=== PATIENT | male | born 1990 ===

== ENCOUNTER 2019-03-13 00:18 | Emergency (ER) | payer SELFPAY ==
[2019-03-13 00:47] LABS: Basophils % (Auto) 0.6 % (0.0-1.8); Eosinophils # (Auto) 0.1 K/mm3 (0.0-0.4); Eosinophils % (Auto) 1.4 % (0.0-4.3); Hemoglobin 16.9 gm/dl (11.8-15.2); Lymphocytes # (Auto) 2.8 K/mm3 (1.2-5.4); Lymphocytes % (Auto) 31.2 % (13.4-35.0); Mean Corpuscular HGB Conc 35 % (32-34); Mean Corpuscular Volume 86 fl (84-94); Monocytes # (Auto) 0.8 K/mm3 (0.0-0.8); Platelet Count 277 K/mm3 (140-440); Red Blood Count 5.58 M/mm3 (3.65-5.03)
[2019-03-13 01:06] LABS: Alanine Aminotransferase 94 units/L (7-56); Albumin 4.8 g/dL (3.9-5); BUN/Creatinine Ratio 11; Blood Urea Nitrogen 9 mg/dL (9-20); Calcium 9.6 mg/dL (8.4-10.2); Hemolysis Index 15
[2019-03-13 02:17] LABS: Bacteria,Urine 1+ /HPF (Negative); Bilirubin,Urine NEG (Negative); Blood,Urine NEG (Negative); Color,Urine Yellow (Yellow); Mucus,Urine 1+ /HPF; Protein,Urine <15 mg/dL mg/dL (Negative); Urobilinogen,Urine < 2.0 mg/dL (<2.0)
[2019-03-13] MEDS ORDERED: PEPCID PO ONE (03:08)
[2019-03-13] MEDS ORDERED: ALUM-MAG HYDROX-SIMETH 200-200-20MG/5ML PO ONE (03:08)
[2019-03-13] MEDS ORDERED: LIDOCAINE VISCOUS 2% PO ONE (03:08)
--- NOTE | 2019-03-13 04:16 | Ultrasound Report ---
ULTRASOUND ABDOMEN, LIMITED (RIGHT UPPER QUADRANT) INDICATION: RUQ Pain COMPARISON: None available. LIMITATIONS: None FINDINGS: Pancreas: Visualized portion shows no significant abnormality. Liver: Prominent diffuse fatty infiltration is seen without obvious focal mass. Liver is not signific antly enlarged. Hepatic length is 14.8 cm. Gallbladder: Normal. Bile ducts: Normal. Common Bile Duct measures 4 mm. Right Kidney: Visualized portions show no abnormality. Free fluid: None. Additional Findings: None. IMPRESSION: No acute abnormalities are seen. Prominent fatty infiltration of the liver. Signer Name: Quintin Trujillo MD Signed: 03/13/2019 4:11 AM Workstation Name: [id number]
[2019-03-13] MEDS ORDERED: MORPHINE IM ONE (04:18)
[2019-03-13] MEDS ORDERED: ZOFRAN ODT PO ONE (04:18)
--- NOTE | 2019-03-13 05:41 | Emergency Department Report ---
ED Abdominal Pain HPI - General Chief Complaint: Abdominal Pain Stated Complaint: ABDOMINAL PAIN Source: patient Mode of arrival: Ambulatory Limitations: No Limitations - History of Present Illness Initial Comments: Patient is a 28-year-old morbidly obese male with no past medical history presents to the ED with continued of acute onset persistent epigastric pain that radiates to the right upper quadrant area with nausea and vomiting for the last 2 days, worse in the last 8 hours after eating at [employer] over 8 hours ago. Patient denies diarrhea, fever, chills, dizziness, chest pain, shortness of breath, sore throat, headache, dizziness, dysuria, urinary freque ncy and urgency, diarrhea, constipation, back pain or hematuria and hematemesis. MD Complaint: abdominal pain, other (Nausea and vomiting) -: Sudden, days(s) (2) Location: RUQ, epigastric Radiation: RUQ, epigastric Migration to: no migration Severity: moderate Severity scale (0 -10): 6 Quality: cramping, aching, sharp Consistency: intermittent Improves With: nothing Worsens With: nothing Context: possible food poisoning Associated Symptoms: denies other symptoms, nausea, vomiting. denies: diarrhea, fever, chills, constipation, dysuria, hematemesis, hematochezia, melena, anorexia, syncope - Related Data Previous Rx's Medication Instructions Recorded Last Taken Type Dicyclomine [Bentyl] 20 mg PO Q6H PRN #24 tablet 03/13/19 Unknown Rx Ondansetron [Zofran ODT TAB] 8 mg PO Q8HR PRN #21 tab.rapdis 03/13/19 Unknown Rx raNITIdine HCl [Zantac] 150 mg PO Q12H #30 tablet 03/13/19 Unknown Rx traMADol [Ultram] 50 mg PO Q6HR PRN #12 tablet 03/13/19 Unknown Rx Allergies Allergy/AdvReac Type Severity Reaction Status Date / Time No Known Allergies Allergy Unverified 03/13/19 00:28 ED Review of Systems ROS: Stated complaint: ABDOMINAL PAIN Other details as noted in HPI Constitutional: denies: chills, fever Eyes: denies: eye pain, eye discharge, vision change ENT: denies: ear pain, throat pain Respiratory: denies: cough, shortness of breath, wheezing Cardiovascular: denies: chest pain, palpitations Endocrine: no symptoms reported Gastrointestinal: abdominal pain, nausea, vomiting. denies: diarrhea, constipation, hematemesis Genitourinary: denies: urgency, dysuria Musculoskeletal: denies: back pain, joint swelling, arthralgia Skin: denies: rash, lesions Neurological: denies: headache, weakness, paresthesias Psychiatric: denies: anxiety, depression Hematological/Lymphatic: denies: easy bleeding, easy bruising ED Past Medical Hx - Past Medical History Previous Medical History?: No - Surgical History Past Surgical History?: No - Social History Smoking Status: Current Some Day Smoker Substance Use Type: None - Medications Home Medications: Home Medications Medication Instructions Recorded Confirmed Last Taken Type Dicyclomine [Bentyl] 20 mg PO Q6H PRN #24 tablet 03/13/19 Unknown Rx Ondansetron [Zofran ODT TAB] 8 mg PO Q8HR PRN #21 tab.rapdis 03/13/19 Unknown Rx raNITIdine HCl [Zantac] 150 mg PO Q12H #30 tablet 03/13/19 Unknown Rx traMADol [Ultram] 50 mg PO Q6HR PRN #12 tablet 03/13/19 Unknown Rx ED Physical Exam - General Limitations: No Limitations General appearance: alert, in no apparent distress - Head Head exam: Present: atraumatic, normocephalic, normal inspection - Eye Eye exam: Present: normal appearance, PERRL, EOMI Pupils: Present: normal accommodation - ENT ENT exam: Present: normal exam, normal orophraynx, mucous membranes moist, TM's normal bilaterally, normal external ear exam - Neck Neck exam: Present: normal inspection, full ROM. Absent: tenderness - Respiratory Respiratory exam: Present: normal lung sounds bilaterally. Absent: respiratory distress, wheezes, rales, rhonchi, chest wall tenderness, accessory muscle use - Cardiovascular Cardiovascular Exam: Present: regular rate, normal rhythm, normal heart sounds. Absent: systolic murmur, diastolic murmur, rubs, gallop - GI/Abdominal GI/Abdominal exam: Present: soft, tenderness (epigastric, RUQ ), normal bowel sounds. Absent: guarding, rebound, hyperactive bowel sounds, organomegaly - Rectal Rectal exam: Present: deferred - Extremities Exam Extremities exam: Present: normal inspection, full ROM, normal capillary refill - Back Exam Back exam: Present: normal inspection, full ROM. Absent: tenderness, CVA tenderness (R), CVA tenderness (L), muscle spasm, paraspinal tenderness - Neurological Exam Neurological exam: Present: alert, oriented X3, CN II-XII intact, normal gait, reflexes normal - Psychiatric Psychiatric exam: Present: normal affect, normal mood - Skin Skin exam: Present: warm, dry, intact, normal color. Absent: rash ED Course Vital Signs 03/13/19 00:23 Temperature 97.3 F L Pulse Rate 85 Blood Pressure 149/87 O2 Sat by Pulse 95 Oximetry - Reevaluation(s) Reevaluation #1: 03/13/19 05:47 This is a 28-year-old male who is morbidly obese who presents to the ED with epigastric and right upper quadrant pain, nausea and vomiting for 2 days worse in the last 12 hours. In the ED, patient is alert and oriented 3 and is not in any distress, and not actively having vomiting. Lab test results were reviewed and nonactionable except for elevated AST of 61 and ALT of 94. Urinalysis is unremarkable. Gallbladder ultrasound shows no gallstones, no pericholecystic fluid or gallbladder wall thickening. Gallbladder ultrasound is generally unremarkable. Patient was treated for nausea and vomiting and for p ain and on reevaluation, patient's pain is resolved and patient has not had any nausea or vomiting while in the ED. Patient was discharged home on medications and advised to follow-up with his primary care physician in 7-10 days for reevaluation. Patient was also advised to maintain a clear liquid diet for 12- 24 hours and to return to the ED immediately if symptoms get worse. 03/13/19 05:48 ED Medical Decision Making - Lab Data Result diagrams: 03/13/19 00:31 03/13/19 00:31 - Radiology Data Radiology results: report reviewed, image reviewed Findings [facility] [address] [place] [address] Ultrasound Report Signed Patient: GABRIEL BURNS MR#: [id number] : 1990 Acct:[id number] Age/Sex: 28 / M ADM Date: 03/13/19 Loc: ED Attending Dr: Ordering Physician: CAMELIA TRUJILLO Date of Service: 03/13/19 Procedure(s): US abdomen limited Accession Number(s): [id number] cc: CAMELIA TRUJILLO ULTRASOUND ABDOMEN, LIMITED (RIGHT UPPER QUADRANT) INDICATION: RUQ Pain COMPARISON: None available. LIMITATIONS: None FINDINGS: Pancreas: Visualized portion shows no significant abnormality. Liver: Prominent diffuse fatty infiltration is seen without obvious focal mass. Liver is not significantly enlarged. Hepatic length is 14.8 cm. Gallbladder: Normal. Bile ducts: Normal. Common Bile Duct measures 4 mm. Right Kidney: Visualized portions show no abnormality. Free fluid: None. Additional Findings: None. IMPRESSION: No acute abnormalities are seen. Prominent fatty infiltration of the liver. Signer Name: Quintin Trujillo MD Signed: 03/13/2019 4:11 AM Workstation Name: [id number] Transcribed By: GJ Dictated By: Quintin Trujillo MD Electronically Authenticated By: Quintin Trujillo MD Signed Date/Time: 03/13/19410 DD/ 9 TD/TT: - Medical Decision Making This is a 28-year-old male who is morbidly obese who presents to the ED with epigastric and right upper quadrant pain, nausea and vomiting for 2 days worse in the last 12 hours. In the ED, patient is alert and oriented 3 and is not in any distress, and not actively having vomiting. Lab test results were reviewed and nonactionable except for elevated AST of 61 and ALT of 94. Urinalysis is unremarkable. Gallbladder ultrasound shows no gallstones, no pericholecystic fluid or gallbladder wall thickening. Gallbladder ultrasound is generally unremarkable. Patient was treated for nausea and vomiting and for pain and on reevaluation, patient's pain is resolved and patient has not had any nausea or vomiting while in the ED. Patient was discharged home on medications and advised to follow-up with his primary care physician in 7-10 days for reevaluation. Patient was also advised to maintain a clear liquid diet for 12- 24 hours and to return to the ED immediately if symptoms get worse. - Differential Diagnosis GERD; Gastroenteritis; Gallstones; gastritis Critical care attestation.: If time is entered above; I have spent that time in minutes in the direct care of this critically ill patient, excluding procedure time. ED Disposition Clinical Impression: Nausea and vomiting in adult Abdominal pain Qualifiers: Abdominal location: right upper quadrant Qualified Code(s): R10.11 - Right upper quadrant pain GERD (gastroesophageal reflux disease) Qualifiers: Esophagitis presence: without esophagitis Qualified Code(s): K21.9 - Gastro- esophageal reflux disease without esophagitis Disposition: TO HOME OR SELFCARE Is pt being admited?: No Does the pt Need Aspirin: No Condition: Stable Instructions: Abdominal Pain (ED), Gastroesophageal Reflux Disease (ED), Acute Nausea and Vomiting (ED) Additional Instructions: Mantenga sundar dieta lquida seda wiliam 12-24 horas, tome medicamentos segn sea necesario, madhav muchos lquidos, damaris un seguimiento con montero mdico de atencin primaria en 7-10 novak para la reevaluacin. Regrese al servicio de urgencias de inmediato si los sntomas. Prescriptions: Dicyclomine [Bentyl] 20 mg PO Q6H PRN #24 tablet PRN Reason: Pain , Severe (7-10) traMADol [Ultram] 50 mg PO Q6HR PRN #12 tablet PRN Reason: Pain raNITIdine HCl [Zantac] 150 mg PO Q12H #30 tablet Ondansetron [Zofran ODT TAB] 8 mg PO Q8HR PRN #21 tab.rapdis PRN Reason: Nausea Referrals: PRIMARY CARE,MD [Primary Care Provider] - 3-5 Days Forms: Work/School Release Form(ED) Time of Disposition: 05:38 Print Language: MALAYSIAN
[2019-03-13 06:06] VITALS: BP 122/87
== END 2019-03-13 06:05 | disposition home or self-care (01) ==
LOC: ED 00:18 → EDBD 00:18 → ED 06:05
DX: K21.9 Gastro-esophageal reflux disease without esophagitis (principal); F17.200 Nicotine dependence, unspecified, uncomplicated
CPT/HCPCS: 36415; 76705; 80053; 81001; 83690; 85025; 96372; 99284; J2270; Q0162